=== PATIENT | female | born 1965 | race Caucasian/White ===

== ENCOUNTER 2019-11-13 22:24 | Emergency (ER) | payer OTHER ==
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
--- NOTE | 2019-11-13 23:28 | XR ---
EXAMINATION TYPE: XR ribs RT w pa chest xray DATE OF EXAM: 11/13/2019 COMPARISON: NONE HISTORY: Rib pain TECHNIQUE: 5 views FINDINGS: Heart and mediastinum are normal. Lungs are clear. Diaphragm is normal. There is no pleural effusion or pneumothorax. The right ribs appear intact. IMPRESSION: Negative right rib exam. Normal chest.
[2019-11-13] MEDS ORDERED: LIDOCAINE 5% PATCH TOPICAL STA (23:44)
[2019-11-13] MEDS ORDERED: MORPHINE SULFATE 4 MG/ML SYRINGE IM STA (23:44)
[2019-11-13] MEDS ORDERED: ACET/COD 300 MG/30 MG STARTER PACK 6 TAB BTL PO STA (23:45)
[2019-11-14 10:30] VITALS: BP 122/71; PULSE 86; RESP 18; TEMP 97.2
== END 2019-11-14 00:13 | disposition home or self-care (01) ==
LOC: EC 22:24
DX: R07.81 Pleurodynia (principal); G89.29 Other chronic pain; M25.579 Pain in unspecified ankle and joints of unspecified foot; V86.55XA Driver of 3- or 4- wheeled all-terrain vehicle (ATV) injured in nontraffic accident, initial encounter; Y93.89 Activity, other specified
CPT/HCPCS: 99284; 96372; 71101; J2270